=== PATIENT | female | born 1965 | race Hispanic/Latino ===

== ENCOUNTER 2018-03-15 16:35 | Emergency (ER) | payer SELFPAY ==
[2018-03-15] MEDS ORDERED: DiphenhydrAMINE HCL 50 MG/ML VIAL ONE (16:50)
[2018-03-15] MEDS ORDERED: METHYLPREDNISOLONE SOD SUCC 125MG/2ML VIAL ONE (16:51)
[2018-03-15] MEDS ORDERED: FAMOTIDINE/PF 20 MG/2 ML VIAL IV ONE (16:51)
== END 2018-03-15 19:05 | disposition home or self-care (01) ==
LOC: EDH 16:35
DX: T78.49XA Other allergy, initial encounter (principal); X58.XXXA Exposure to other specified factors, initial encounter
CPT/HCPCS: 96374; 96375; 99284; J1200; J2930; J3490

== ENCOUNTER 2018-11-13 11:25 | Emergency (ER) | payer SELFPAY ==
[2018-11-13 12:41] LABS: RAPID GROUP A STREP NEGATIVE (NEGATIVE)
[2018-11-13] MEDS ORDERED: DEXAMETHASONE SOD PHOSPHATE 10MG/ML 1ML VIAL ONE (13:03)
[2018-11-13] MEDS ORDERED: IPRATROPIUM/ALBUTEROL SULFATE 3 ML SOLUTION IH ONE (13:13)
== END 2018-11-13 13:48 | disposition home or self-care (01) ==
LOC: EDH 11:25
DX: J02.9 Acute pharyngitis, unspecified (principal); E78.5 Hyperlipidemia, unspecified; Z88.0 Allergy status to penicillin; Z88.6 Allergy status to analgesic agent; Z72.0 Tobacco use
CPT/HCPCS: 71045; 87804 ×2; 87880; 94640; 96372; 99284; J1100

== ENCOUNTER 2019-08-29 01:27 | Emergency (ER) | payer OTHER ==
[2019-08-29] MEDS ORDERED: SODIUM CHLORIDE 0.9% 1000ML 1,000 ML IV ONE (02:08)
[2019-08-29 02:16] LABS: BASOPHILS % (AUTO) 0.5 % (0.0-5.0); EOSINOPHILS % (AUTO) 3.6 % (0.0-8.0); HEMATOCRIT 42.6 % (36-48); LYMPHOCYTES % (AUTO) 25.3 % (21.0-51.0); MEAN CORPUSCULAR HEMOGLOBIN 30.2 pg (27.0-33.0); MEAN CORPUSCULAR VOLUME 88.9 fL (79-99); MONOCYTES % (AUTO) 5.7 % (3.0-13.0); NEUTROPHILS % (AUTO) 64.9 % (40.0-77.0); PLATELET COUNT (AUTO) 188 K/uL (130-400); RED BLOOD CELL COUNT(AUTO) 4.79 MIL/uL (4.00-5.50); RED CELL DISTRIBUTION WIDTH 13.3 % (11.0-15.5); WHITE BLOOD COUNT (AUTO) 9.7 K/uL (4.8-10.8)
[2019-08-29 02:18] LABS: APPEARANCE,URINE Clear (CLEAR); BILIRUBIN,URINE Negative (NEGATIVE); COLOR,URINE Yellow (YELLOW); GLUCOSE, URINE (UA) Negative (NEGATIVE); KETONES,URINE Negative (NEGATIVE); LEUKOCYTE ESTERASE ,URINE Negative (NEGATIVE); NITRATE,URINE Negative (NEGATIVE); OCCULT BLOOD,URINE Small (NEGATIVE); PROTEIN,URINE Negative (NEGATIVE); UROBILINOGEN,URINE 0.2 mg/dL (0.2-1.0)
[2019-08-29 02:27] LABS: INR 0.95 (0.85-1.15); PARTIAL THROMBOPLASTIN TIME 27.9 SEC (26.3-35.5)
[2019-08-29 02:30] LABS: BACTERIA,URINE Few /HPF (None Seen); RBC,URINE 0-1 /HPF (0-1); SQUAMOUS EPITHELIAL CELL,UR 0-2 /HPF (0-2); WBC,URINE 0-1 /HPF (0-1)
[2019-08-29 02:33] LABS: ALBUMIN 3.5 g/dL (3.5-5.0); CREATININE 1.3 mg/dL (0.5-1.5); POTASSIUM 3.8 mmol/L (3.5-5.1); TOTAL PROTEIN, SERUM 7.6 g/dL (6.0-8.3)
[2019-08-29] MEDS ORDERED: IPRATROPIUM/ALBUTEROL SULFATE 3 ML SOLUTION IH ONE (02:33)
[2019-08-29] MEDS ORDERED: METHYLPREDNISOLONE SOD SUCC 125MG/2ML VIAL ONE (02:38)
[2019-08-29] MEDS ORDERED: LEVOFLOXACIN 500 MG TABLET ONE (03:41)
[2019-08-29] MEDS ORDERED: ALBUTEROL SULFATE 0.083% 2.5 MG/3 ML INH IH ONE (03:42)
== END 2019-08-29 04:19 | disposition home or self-care (01) ==
LOC: EDH 01:27
DX: J45.909 Unspecified asthma, uncomplicated (principal); E78.5 Hyperlipidemia, unspecified; E11.9 Type 2 diabetes mellitus without complications; Z88.0 Allergy status to penicillin; Z88.6 Allergy status to analgesic agent; Z72.0 Tobacco use
CPT/HCPCS: 36415; 71045; 80053; 81001; 83605; 83880; 84484; 85025; 85610; 85730; 87804 ×2; 93005; 94640 ×2; 96374; 99285; J2930; J7030

== ENCOUNTER 2019-09-12 21:30 | Emergency (ER) | payer SELFPAY ==
[2019-09-12 22:08] LABS: BASOPHILS % (AUTO) 0.3 % (0.0-5.0); EOSINOPHILS % (AUTO) 1.1 % (0.0-8.0); HEMATOCRIT 42.7 % (36-48); LYMPHOCYTES % (AUTO) 24.2 % (21.0-51.0); MEAN CORPUSCULAR HEMOGLOBIN 28.9 pg (27.0-33.0); MEAN CORPUSCULAR HGB CONC 33.3 g/dL (32.0-36.0); MONOCYTES % (AUTO) 6.4 % (3.0-13.0); NEUTROPHILS % (AUTO) 67.8 % (40.0-77.0); PLATELET COUNT (AUTO) 236 K/uL (130-400); RED BLOOD CELL COUNT(AUTO) 4.91 MIL/uL (4.00-5.50); RED CELL DISTRIBUTION WIDTH 12.7 % (11.0-15.5); WHITE BLOOD COUNT (AUTO) 12.6 K/uL (4.8-10.8)
[2019-09-12 22:13] LABS: APPEARANCE,URINE Cloudy (CLEAR); BILIRUBIN,URINE Negative (NEGATIVE); COLOR,URINE Yellow (YELLOW); GLUCOSE, URINE (UA) Negative (NEGATIVE); KETONES,URINE Negative (NEGATIVE); LEUKOCYTE ESTERASE ,URINE Large (NEGATIVE); NITRATE,URINE Negative (NEGATIVE); OCCULT BLOOD,URINE Moderate (NEGATIVE); PH,URINE 5.5 (5.0-8.0); PROTEIN,URINE POS 1+ mg/dL (NEGATIVE); UROBILINOGEN,URINE 0.2 mg/dL (0.2-1.0)
[2019-09-12 22:18] LABS: CREATININE 1.3 mg/dL (0.5-1.5); POTASSIUM 4.3 mmol/L (3.5-5.1)
[2019-09-12 22:22] LABS: ALBUMIN 3.4 g/dL (3.5-5.0); BILIRUBIN,TOTAL 0.8 mg/dL (0.2-1.0); TOTAL PROTEIN, SERUM 8.2 g/dL (6.0-8.3)
[2019-09-12 22:27] LABS: RAPID GROUP A STREP NEGATIVE (NEGATIVE)
[2019-09-12 22:32] LABS: BACTERIA,URINE Few /HPF (None Seen); SQUAMOUS EPITHELIAL CELL,UR None Seen /HPF (0-2); WBC,URINE 26-50 /HPF (0-1)
[2019-09-12] MEDS ORDERED: CEPHALEXIN 500 MG CAPSULE ONE (23:06)
[2019-09-12] MEDS ORDERED: TRAMADOL HCL 50 MG TABLET ONE (23:25)
== END 2019-09-12 23:52 | disposition home or self-care (01) ==
LOC: EDH 21:30
DX: N39.0 Urinary tract infection, site not specified (principal); J02.9 Acute pharyngitis, unspecified; E11.9 Type 2 diabetes mellitus without complications; E78.5 Hyperlipidemia, unspecified; Z88.0 Allergy status to penicillin; Z88.5 Allergy status to narcotic agent; Z98.890 Other specified postprocedural states; Z72.0 Tobacco use
CPT/HCPCS: 36415; 80053; 81001; 85025; 87804; 87880

== ENCOUNTER 2022-02-20 02:05 | Emergency (ER) | payer OTHER ==
[~2022-02-20] VITALS: Ht 162.6 cm; Wt 95.3 kg
[2022-02-20 02:11] VITALS: BP 155/92
[2022-02-20 02:42] LABS: BASOPHILS % (AUTO) 0.4 % (0.0-5.0); EOSINOPHILS % (AUTO) 4.4 % (0.0-8.0); LYMPHOCYTES % (AUTO) 42.1 % (21.0-51.0); MEAN CORPUSCULAR HEMOGLOBIN 29.6 pg (27.0-33.0); MEAN CORPUSCULAR HGB CONC 33.8 g/dL (32.0-36.0); MEAN CORPUSCULAR VOLUME 87.4 fL (79-99); MONOCYTES % (AUTO) 4.2 % (3.0-13.0); NEUTROPHILS % (AUTO) 48.7 % (40.0-77.0); PLATELET COUNT (AUTO) 208 K/uL (130-400); RED BLOOD CELL COUNT(AUTO) 4.46 MIL/uL (4.00-5.50); RED CELL DISTRIBUTION WIDTH 13.4 % (11.0-15.5)
[2022-02-20 03:05] LABS: CREATININE 1.1 mg/dL (0.5-1.5); POTASSIUM 3.4 mmol/L (3.5-5.1)
[2022-02-20 03:07] LABS: INR 0.93 (0.85-1.15); PROTHROMBIN TIME 9.8 SEC (9.6-11.6)
[2022-02-20 03:08] LABS: PARTIAL THROMBOPLASTIN TIME 24.8 SEC (26.3-35.5)
[2022-02-20 03:10] LABS: ALBUMIN 3.5 g/dL (3.5-5.0); BILIRUBIN,TOTAL 0.7 mg/dL (0.2-1.0); TOTAL PROTEIN, SERUM 7.4 g/dL (6.0-8.3)
[2022-02-20] MEDS ORDERED: ACETAMINOPHEN 325 MG TAB PO ONE (05:30)
[2022-02-20] MEDS ORDERED: CLINDAMYCIN 150 MG CAP PO ONE (05:30)
[2022-02-20] MEDS ORDERED: CLIN-141 PO (05:37)
== END 2022-02-20 05:51 | disposition home or self-care (01) ==
LOC: EDH 02:05
DX: L03.211 Cellulitis of face (principal); K02.9 Dental caries, unspecified; E11.9 Type 2 diabetes mellitus without complications; E78.00 Pure hypercholesterolemia, unspecified; Z88.0 Allergy status to penicillin; Z88.6 Allergy status to analgesic agent
CPT/HCPCS: 36415; 80053; 84484; 85025; 85610; 85730; 93005

== ENCOUNTER → 2022-05-18 | Outpatient (CLI) | payer OTHER ==
[~2022-05-18] MED LIST: CLIN-141 PO; GADOTERATE MEGLUMINE 10 MMOL/20 ML VIAL IV ONE
== END | disposition home or self-care (01) ==
LOC: RAH 13:54
PROVIDERS: ATTEND Family Medicine
DX: R92.8 Other abnormal and inconclusive findings on diagnostic imaging of breast (principal); N63.10 Unspecified lump in the right breast, unspecified quadrant; N63.20 Unspecified lump in the left breast, unspecified quadrant
CPT/HCPCS: 77049; A9575

== ENCOUNTER → 2022-06-21 | Outpatient (CLI) | payer OTHER ==
[~2022-06-21] MED LIST changes: -GADOTERATE MEGLUMINE 10 MMOL/20 ML VIAL IV ONE
== END | disposition home or self-care (01) ==
LOC: RAH 10:47
PROVIDERS: ATTEND Family Medicine
DX: N63.11 Unspecified lump in the right breast, upper outer quadrant (principal)
CPT/HCPCS: 76641

== ENCOUNTER 2025-06-24 01:44 | Emergency (ER) | payer SELFPAY ==
[~2025-06-24] VITALS: Ht 149.9 cm; Wt 87.1 kg
[2025-06-24] MEDS: ADENOSINE 6MG VIAL IV ONE ×2 (02:17)
[2025-06-24 02:18] LABS: IMMATURE GRANULOCYTE ABSOLUTE 0.03 K/uL (0-1); NUCLEATED RED BLOOD CELLS 0.0 % (0.0-0.19); PLATELET COUNT (AUTO) 212 K/uL (130-400); RED BLOOD CELL COUNT(AUTO) 4.59 MIL/uL (4.00-5.50); RED CELL DISTRIBUTION WIDTH 13.3 % (11.0-15.5); WHITE BLOOD COUNT (AUTO) 12.6 K/uL (4.8-10.8)
[2025-06-24 02:28] LABS: CREATININE 1.0 mg/dL (0.5-1.0); GLOMERULAR FILTR. RATE CALC 66.0 mL/min (>90); GLUCOSE,RANDOM 282.0 mg/dL (70-105); SODIUM SERUM 138.0 mmol/L (136-145); UREA NITROGEN, BLOOD 12.0 mg/dL (7-18)
--- NOTE | 2025-06-24 02:44 | ERN ---
General Chief Complaint: Palpitations Stated Complaint: C/O PALPITATIONS Time Seen by MD: 02:13 Source: patient, family History of Present Illness Initial Comments 59-year-old female with a distant history of SVT comes in with an acute onset of SVT. She does not have any inciting conditions that she can think of. No fevers no chills no signs of infection. Patient past medical history includes hypercholesterolemia type 2 diabetes. Timing/Duration: 1-3 hours Allergies: Coded Allergies: Penicillins (Unverified Allergy, Unknown, 09/13/19) aspirin (Unverified Allergy, Unknown, 09/13/19) ibuprofen (Unverified Allergy, Unknown, 09/13/19) Home Meds Active Scripts Clindamycin HCl (Clindamycin HCl) 300 Mg Capsule, 1 CAP PO QID for 10 Days, #40 CAP 0 Refills Prov:DESTIN SHI MD 02/20/22 Past Medical History Past Medical History: Diabetes-Type II, High Cholesterol, Other Medical History Other: HX OF TACHYCARDIA Past Surgical History: None Constitutional: (-) chills, (-) diaphoresis, (-) fever, (-) malaise, (-) weakness, (-) other documentation EENTM: (-) eye pain, (-) blurred vision, (-) tearing, (-) double vision, (-) ear pain, (-) ear discharge, (-) nose pain, (-) nose congestion, (-) throat pain, (-) Throat swelling, (-) mouth pain, (-) tooth pain, (-) mouth swelling, (-) other documentation Respiratory: (-) cough, (-) orthopnea, (-) short of breath, (-) stridor, (-) wheezing, (-) other documentation Cardiovascular: (-) chest pain, (-) edema, (-) palpitations, (-) syncope, (-) dyspnea on exertion, (-) other documentation Gastrointestinal/Abdominal: (-) nausea, (-) vomiting, (-) diarrhea, (-) abdominal pain, (-) abdominal distention, (-) constipation, (-) rectal bleeding, (-) dark stool/melena, (-) other documentation Genitourinary: (-) vaginal discharge, (-) vaginal bleeding, (-) dysuria, (-) frequency, (-) hematuria, (-) pain, (-) other documentation Musculoskeletal: (-) Neck pain, (-) back pain, (-) Flank Pain, (-) joint pain, (-) joint swelling, (-) muscle pain, (-) muscle stiffness, (-) gout, (-) other documentation Physical Exam General Appearance: (+) mild distress Orientation: (+) alert, (+) oriented x 3 Head/Face Trauma: No Eye: bilateral eye normal inspection, bilateral eye PERRL, bilateral eye EOMI Ear, Nose, Throat: (+) hearing grossly normal, (+) normal ENT inspection, (+) moist mucous membraine Neck: (+) normal inspection, (+) supple, (+) full range of motion Respiratory: (+) chest non-tender, (+) lungs clear, (+) well ventilated Heart: (+) regular, (+) no gallop, (+) tachycardia Gastrointestinal: (+) soft, (+) non-tender, (+) bowel sound present Results Laboratory and Microbiology Lab and Micro Result Laboratory Tests Test 06/24/25 02:00 White Blood Count 12.6 K/uL (4.8-10.8) H Red Blood Count 4.59 MIL/uL (4.00-5.50) Hemoglobin 13.8 g/dL (12.0-16.0) Hematocrit 40.5 % (36-48) Mean Corpuscular Volume 88.2 fL (79-99) Mean Corpuscular Hemoglobin 30.1 pg (27.0-33.0) Mean Corpuscular Hemoglobin Concent 34.1 g/dL (32.0-36.0) Red Cell Distribution Width 13.3 % (11.0-15.5) Platelet Count 212 K/uL (130-400) Mean Platelet Volume 12.4 fL (7.5-10.5) H Immature Granulocyte % (Auto) 0.2 % (0-1) Neutrophils (%) (Auto) 56.5 % (40.0-77.0) Lymphocytes (%) (Auto) 35.1 % (21.0-51.0) Monocytes (%) (Auto) 5.1 % (3.0-13.0) Eosinophils (%) (Auto) 2.7 % (0.0-8.0) Basophils (%) (Auto) 0.4 % (0.0-5.0) Neutrophils # (Auto) 7.1 K/uL (1.8-7.7) Lymphocytes # (Auto) 4.4 K/uL (1.0-4.8) Monocytes # (Auto) 0.6 K/uL (0.1-1.0) Eosinophils # (Auto) 0.34 K/uL (0.00-0.70) Basophils # (Auto) 0.05 K/uL (0.00-0.20) Absolute Immature Granulocyte (auto 0.03 K/uL (0-1) Nucleated Red Blood Cells 0.0 % (0.0-0.19) Prothrombin Time 10.0 SEC (9.6-11.6) Prothromb Time International Ratio 0.94 (0.85-1.15) Activated Partial Thromboplast Time 25.2 SEC (26.3-35.5) L Sodium Level 138 mmol/L (136-145) Potassium Level 3.7 mmol/L (3.5-5.1) Chloride Level 101 mmol/L (101-111) Carbon Dioxide Level 28 mmol/L (21-32) Blood Urea Nitrogen 12 mg/dL (7-18) Creatinine 1.0 mg/dL (0.5-1.0) Glomerular Filtration Rate Calc 66 mL/min (>90) Random Glucose 282 mg/dL (70-105) H Total Calcium 8.9 mg/dL (8.5-10.1) Troponin I High Sensitivity 6 ng/L (4-50) B-Type Natriuretic Peptide 10 pg/mL (0-100) Thyroid Stimulating Hormone (TSH) 3.16 uIU/mL (0.36-3.74) Labs Reviewed?: Yes EKG/XRAY/US/CT/MRI EKG Comment SVT no ischemic changes. MDM MDM: Differential diagnosis: Acute NE, recurrent SVT, fluid overload, hyperthyroidism Rationale: Tests considered and ordered secondary to shared decision making include: Previous outside records reviewed: Old ER visits. Risk of complication and/or morbidity or mortality of patient management: None Medications-Per medication reconciliation Need for hospitalization: Patient does meet criteria for hospitalization. Need for emergency major/minor surgery: No There are no social concerns with this patient. Prescription drug management Prescriptions will include symptomatic care Patient's prior external medical records from other ER visits were reviewed by me as indicated. Prior testing and results from previous visits were reviewed. Prior tests were taken into account with medical decision making and resource utilization, independent historian/historians were used to obtain complete medical history. I independently interpreted the test that were performed, results were reviewed by me and considered findings on radiology if ordered. Patient's chemistry panel comes back normal with no elevated troponins no electrolyte abnormalities. She does have a mild leukocytosis. Patient given 6 mg of adenosine and she converted to a normal sinus rhythm. ED Course Orders Procedure Category Date Status Time 12 Lead Ekg Tracing- EKG 06/24/25 Logged Technical 01:52 Adenosine 6mg Vial PHA 06/24/25 Complete (Adenocard 6mg Vial) 01:59 Cbc With Differential LAB 06/24/25 Complete 01:59 Basic Metabolic Panel LAB 06/24/25 Complete 01:59 Troponin I High LAB 06/24/25 Complete Sensitivity 01:59 B-Type Natriuretic LAB 06/24/25 Complete Peptide 01:59 Pt And Ptt LAB 06/24/25 Complete 01:59 Chest 1vw RAD 06/24/25 Resulted 01:59 Adenosine 6mg Vial PHA 06/24/25 Complete (Adenocard 6mg Vial) 02:30 12 Lead Ekg Tracing- EKG 06/24/25 Logged Technical 02:09 Thyroid Stimulating LAB 06/24/25 Complete Hormone 01:59 Current Medications Medications (Trade) Dose Ordered Sig/Rafael Route PRN Reason Start Time Stop Time Status Last Admin Dose Admin Adenosine (Adenocard 6mg Vial) 6 mg ONCE ONCE IV 06/24/25 02:30 06/24/25 02:31 DC 06/24/25 02:17 Adenosine (Adenocard 6mg Vial) 6 mg STK-MED ONCE IV 06/24/25 01:59 06/24/25 01:59 DC Vital Signs Date Time Temp Pulse Resp B/P (MAP) Pulse Ox O2 Delivery O2 Flow Rate FiO2 06/24/25 03:12 98.1 95 18 122/87 99 Room Air* 0 21 06/24/25 02:20 111 20 128/83 99 Room Air* 0 21 06/24/25 02:17 180 06/24/25 02:00 181 20 118/90 99 Room Air* 0 21 06/24/25 01:45 98.2 187 20 123/87 97 Room Air DX & DISP Disposition: Discharge Departure Impression: Primary Impression: SVT (supraventricular tachycardia) Additional Impression: Paroxysmal SVT (supraventricular tachycardia) Condition: Stable Additional Instructions: You had an episode of rapid heart rate that was corrected with a single dose of adenosine. You have remained in sinus rhythm and are stable and can be d ischarged from the emergency room. This is the 2nd episode in three years. 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 I do not need to give you any new medications. Referrals: KARINA TURNER MD (PCP) GILBERTO SMITH MD Jun 24, 2025 02:44
--- NOTE | 2025-06-24 03:06 | HMCIMG ---
EXAM: CR Chest, 1 view CLINICAL HISTORY: AFIB RVR. COMPARISON: Chest radiograph dated 08/29/2019. FINDINGS: The lungs show no infiltrates or other acute findings. No pleural effusion or pneumothorax. The cardiomediastinal silhouette is within normal limits. No acute osseous abnormality. IMPRESSION: No acute cardiopulmonary process is evident. Compared to the prior study, there is no significant interval change. /[place]
[2025-06-24 03:09] LABS: INR 0.94 (0.85-1.15)
[2025-06-24 04:35] VITALS: BP 116/86; PULSE 92; RESP 18; TEMP 98.1; O2SAT 99
--- NOTE | 2025-06-24 06:52 | EKG ---
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
--- NOTE | 2025-06-24 06:52 | EKG ---
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
== END 2025-06-24 04:37 | disposition home or self-care (01) ==
LOC: EDH 01:44
DX: I47.10 Supraventricular tachycardia, unspecified (principal); E11.9 Type 2 diabetes mellitus without complications; E78.00 Pure hypercholesterolemia, unspecified; Z86.79 Personal history of other diseases of the circulatory system; Z88.0 Allergy status to penicillin; Z88.6 Allergy status to analgesic agent
CPT/HCPCS: 99285; 96374; 71045; 84443; 84484; 80048; 83880; 85025; 85610; 85730; 36415; 93005 ×2; J0153 ×2